=== PATIENT | male | born 1955 | race Two or more races ===

== ENCOUNTER 2018-02-17 13:16 | Outpatient (CLI) | payer OTHER | END 2018-02-17 23:59 | disposition home or self-care (01) | LOC: WOU 13:16 | PROVIDERS: ATTEND Podiatrist Foot & Ankle Surgery | DX: I70.262 Atherosclerosis of native arteries of extremities with gangrene, left leg (principal); L97.523 Non-pressure chronic ulcer of other part of left foot with necrosis of muscle; F17.200 Nicotine dependence, unspecified, uncomplicated; C34.11 Malignant neoplasm of upper lobe, right bronchus or lung; F10.21 Alcohol dependence, in remission; I10 Essential (primary) hypertension; Z82.3 Family history of stroke | CPT/HCPCS: A6402; G0463; Z7610 ==

== ENCOUNTER 2018-03-29 20:22 | Inpatient (IN) | payer OTHER ==
[~2018-03-29] VITALS: Ht 182.9 cm; Wt 65.8 kg
--- NOTE | 2018-03-30 03:05 | NUR ---
RECEIVED PATIENT DIRECT ADMIT FROM [facility] FOR DX TOE NECROSIS. AO X 3, ABLE TO MAKE NEEDS KNOWN. NO ACUTE DISTRESS NOTED. DENIES ANY PAIN AT THIS TIME. IV SITE PATENT, INTACT; FLUSHED. LEFT FOOT WOUND DRESSING INTACT; PHOTO TAKEN. SAFETY PRECAUTIONS AND COMFORT MEASURES IN PLACE. ORIENTATION TO ROOM AND UNIT GIVEN. WILL CONTINUE TO MONITOR.
[2018-03-30 03:10] VITALS: BP 122/77
[2018-03-30] MEDS ORDERED: MAGNESIUM HYDROXIDE 30 ML UDC PO PRN (03:30)
[2018-03-30] MEDS ORDERED: VANCOMYCIN 1 GM in IV D5W 250 ML IV SCH ×2 (03:30→05:00)
[2018-03-30] MEDS ORDERED: ONDANSETRON HCL/PF 4 MG/2 ML VIAL IVP PRN (03:30)
[2018-03-30] MEDS ORDERED: Z GUARD REMEDY 2 OZ OINT TP PRN (03:30)
[2018-03-30] MEDS ORDERED: PIPERACILLIN /TAZOBACTAM 3.375 G VIAL IV ONE (05:04)
[2018-03-30] MEDS ORDERED: VANCOMYCIN 1 GM VIAL ONE (05:04)
[2018-03-30] MEDS: PIPERACILLIN /TAZOBACTAM 3.375 G in IV D5W 50 ML IV SCH ×4 (05:16→23:40)
--- NOTE | 2018-03-30 06:00 | NUR ---
PATIENT ASLEEP, EASILY AROUSABLE. RESPIRATIONS EVEN. NO SIGNS OF PAIN NOTED. DUE MEDS GIVEN WITH NO ASE NOTED. NEEDS ATTENDED. SAFETY PRECAUTIONS AND COMFORT MEASURES IN PLACE. WILL GIVE REPORT TO DAY SHIFT FOR CONTINUITY OF CARE.
[2018-03-30 06:40] LABS: BASOPHILS # (AUTO) 0.1 /CMM (0.0-0.2); BASOPHILS % (AUTO) 0.8 % (0.0-2.0); EOSINOPHILS % (AUTO) 4.1 % (0.0-6.0); HEMATOCRIT 33 % (39-51); HEMOGLOBIN 10.7 g/dL (13.5-17.5); LYMPHOCYTES # (AUTO) 1.2 /CMM (0.8-4.8); LYMPHOCYTES % (AUTO) 14.6 % (20.0-44.0); MEAN CORPUSCULAR HGB CONC 33 g/dl (31.0-36.0); MEAN CORPUSCULAR VOLUME 88 fL (80-96); MONOCYTES # (AUTO) 1.9 /CMM (0.1-1.30); MONOCYTES % (AUTO) 23.1 % (2.0-12.0); NEUTROPHILS # (AUTO) 4.8 /CMM (1.8-8.9); NEUTROPHILS % (AUTO) 57.4 % (43.0-81.0); PLATELET COUNT (AUTO) 304 /CMM (150-450); RED BLOOD CELL COUNT(AUTO) 3.71 MIL/uL (4.5-6.0); WHITE BLOOD COUNT (AUTO) 8.4 K/uL (4.3-11.0)
[2018-03-30 06:43] LABS: CALCIUM, SERUM 8.8 mg/dL (8.5-10.1); CREATININE 0.8 mg/dL (0.6-1.3); MAGNESIUM 1.7 mg/dL (1.8-2.4); PHOSPHORUS 3.8 mg/dL (2.5-4.9); POTASSIUM 4.5 mmol/L (3.5-5.1)
--- NOTE | 2018-03-30 07:42 | NUR ---
MS RN OPENING NOTES RECEIVED PT LAYING IN BED, AWAKE AND ALERT. PT IS A/O X3, AFEBRILE. RESPIRATIONS ARE EVEN AND UNLABORED, NOT IN ANY ACUTE DISTRESS NOTED. PT DENIES ANY PAIN TO LEFT FOOT AT THIS TIME, NO C/O SOB, N/V. IV SITE TO R WRIST INTACT, NO INFILTRATION NOTED. DRESSING KEPT CLEAN AND DRY. SAFETY MEASURES ARE IN PLACE. INSTRUCTED PT TO USE CALL LIGHT WHEN ASSISTANCE IS NEEDED, CALL LIGHT IS LEFT WITHIN REACH. WILL CONTINUE TO MONITOR FOR CONTINUITY OF CARE.
[2018-03-30 07:44] LABS: BAND % (MANUAL) 1 % (0.0-5.0); EOSINOPHILS % (MANUAL) 3 % (0-4); LYMPHOCYTES % (MANUAL) 20 % (16-48); MONOCYTES % (MANUAL) 16 % (0-11.0); NEUTROPHILS % (MANUAL) 60 (42-76)
[2018-03-30 08:00] VITALS: BP 100/72
[2018-03-30] MEDS ORDERED: FEE PK DOSING 1 MIN EA MC ONE (08:31)
[2018-03-30] MEDS: Magnesium 1GM/D5W 100ML PREMIX 100 ML IV SCH ×2 (09:38→10:47)
[2018-03-30] MEDS ORDERED: MIRT15TA7 PO (10:12)
[2018-03-30] MEDS ORDERED: QUET50TA PO (10:12)
[2018-03-30] MEDS ORDERED: ATOR20TA PO (10:12)
--- NOTE | 2018-03-30 12:01 | NUR ---
MS RN NOTES-- PT SEEN BY DR. SEPULVEDA AND DRESSING CHANGE WAS DONE TO LEFT FOOD.
[2018-03-30] MEDS: HYDROCODONE/APAP 5/325MG 1 EACH TABLET PO PRN ×2 (14:24→18:07)
[2018-03-30 16:00] VITALS: BP 100/52
[2018-03-30] MEDS: VANCOMYCIN 1 GM in IV D5W 250 ML IV SCH (17:39)
--- NOTE | 2018-03-30 18:44 | NUR ---
MS GARCIA NOTES-- PT SIGNED CONSENTS FOR TOMORROW'S PROCEDURE FOR WOUND DEBRIDEMENT LEFT FOOD AND PARTIAL AMPUTATION 3-4 LEFT TOES.
--- NOTE | 2018-03-30 18:45 | NUR ---
MS RN CLOSING NOTES ALL DUE MEDS GIVEN, NEEDS MET AND ANTICIPATED. PT IS A/O X3, AFEBRILE. RESPIRATIONS ARE EVEN AND UNLABORED, NOT IN ANY ACUTE DISTRESS NOTED. PT DENIES ANY PAIN AT THIS TIME, NO C/O SOB, N/V NOTED. IV SITE TO LAC INTACT, NO INFILTRATION NOTED. DRESSING KEPT CLEAN AND DRY. SAFETY MEASURES ARE IN PLACE. WILL ENDORSE TO NEXT SHIFT FOR CONTINUITY OF CARE.
--- NOTE | 2018-03-30 19:30 | NUR ---
MS/RN OPENING NOTES PT AWAKE, RESTING COMFORTABLY IN BED. A/OX3. ON ROOM AIR, BREATHING EVEN AND UNLABORED. IN NO ACUTE DISTRESS AT THIS TIME. NO C/O OF PAIN AT THIS TIME, DENIES SOB. IV TO LAC PATENT AND INTACT. PT FOR SURGERY IN AM, CONSENTS SIGNED. NPO POST MIDNIGHT, PT AWARE. DRESSING TO LLE C/D/I, CHANGED BY DR. HIGGINS TODAY. NWB TO LLE. BED IN LOW/LOCKED POSITION WITH CALL LIGHT IN REACH. SIDE RAILS UPX2. WILL CONTINUE TO MONITOR
[2018-03-30 20:00] VITALS: BP 95/61
[2018-03-30] MEDS: QUETIAPINE FUMARATE 25 MG TABLET PO SCH (22:51)
[2018-03-30] MEDS: ATORVASTATIN 10 MG TABLET PO SCH (22:51)
[2018-03-30] MEDS: MIRTAZAPINE 15 MG TABLET PO SCH (22:52)
[2018-03-31] VITALS (8 sets, daily range): BP systolic 91–116; BP diastolic 54–74
[2018-03-31] MEDS: HYDROCODONE/APAP 5/325MG 1 EACH TABLET PO PRN ×4 (00:07→21:10)
[2018-03-31] MEDS: PIPERACILLIN /TAZOBACTAM 3.375 G in IV D5W 50 ML IV SCH ×3 (06:02→17:05)
[2018-03-31 06:30] LABS: BASOPHILS # (AUTO) 0.1 /CMM (0.0-0.2); BASOPHILS % (AUTO) 0.7 % (0.0-2.0); EOSINOPHILS % (AUTO) 5.4 % (0.0-6.0); HEMATOCRIT 32 % (39-51); HEMOGLOBIN 10.5 g/dL (13.5-17.5); LYMPHOCYTES # (AUTO) 1.1 /CMM (0.8-4.8); LYMPHOCYTES % (AUTO) 14.1 % (20.0-44.0); MEAN CORPUSCULAR HGB CONC 33 g/dl (31.0-36.0); MEAN CORPUSCULAR VOLUME 87 fL (80-96); MONOCYTES # (AUTO) 1.7 /CMM (0.1-1.30); MONOCYTES % (AUTO) 22.4 % (2.0-12.0); NEUTROPHILS # (AUTO) 4.4 /CMM (1.8-8.9); NEUTROPHILS % (AUTO) 57.4 % (43.0-81.0); PLATELET COUNT (AUTO) 287 /CMM (150-450); RED BLOOD CELL COUNT(AUTO) 3.64 MIL/uL (4.5-6.0); WHITE BLOOD COUNT (AUTO) 7.7 K/uL (4.3-11.0)
[2018-03-31 06:38] LABS: CALCIUM, SERUM 8.7 mg/dL (8.5-10.1); CREATININE 0.7 mg/dL (0.6-1.3); MAGNESIUM 1.9 mg/dL (1.8-2.4); PHOSPHORUS 4.1 mg/dL (2.5-4.9); POTASSIUM 4.1 mmol/L (3.5-5.1)
[2018-03-31] MEDS: VANCOMYCIN 1 GM in IV D5W 250 ML IV SCH ×2 (07:08→18:06)
--- NOTE | 2018-03-31 07:44 | NUR ---
WOUND CARE CONSULT WOUND CARE RECEIVED CONSULT FOR TOE WOUND. WOUND CARE WILL DEFER CONSULT AND TREATMENT PLANS TO DPM DR HAGEN HE IS CURRENTLY FOLLOWING THIS PATIENT. PATIENT WITH CHRIS AT 19. WILL SEE PRN.
--- NOTE | 2018-03-31 07:47 | NUR ---
MS/RN CLOSING NOTES PT AWAKE, RESTING COMFORTABLY IN BED. A/OX3. ANXIOUS AT TIMES. ON ROOM AIR, BREATHING EVEN AND UNLABORED. IN NO ACUTE DISTRESS. DENIES SOB. IV TO LAC PATENT AND INTACT. KEPT COMFORTABLE DURING SHIFT. NPO POST MIDNIGHT FOR SURGERY. CONSENTS SIGNED, PT AWARE. DRESSING TO LLE SOILED AT THIS TIME. NWB. USING URINAL. EMOTIONAL SUPPORT PROVIDED. NO SIGNIFICANT CHANGES OVERNIGHT. ALL NEEDS MET. KEPT COMFORTABLE DURING SHIFT. BED IN LOW/LOCKED POSITION WITH CALL LIGHT IN REACH. SIDE RAILS UPX2. ENDORSED TO DAY SHIFT RN RAUL.
[2018-03-31] MEDS ORDERED: IV NS 0.9% 1,000 ML IV STA (08:00)
--- NOTE | 2018-03-31 08:00 | NUR ---
RN NOTES PATIENT A/OX3, NO CHANGE IN LOC, NAD, BP LOW, CALLED ALE BLISS WITH NEW ORDER OF IVF 1L NS BOLUS X1. ORDER NOTED AND CARRIED OUT. PATIENT NPO DUE TO A PROCEDURE, CHECKLIST COMPLETE. WILL CONT. TO MONITOR.
[2018-03-31] MEDS ORDERED: BACITRACIN 50000 UNITS/VIAL ONE (08:52)
[2018-03-31] MEDS ORDERED: BUPIVACAINE 0.5 % PF 150 MG/30 ML VIAL ONE (08:52)
[2018-03-31] MEDS ORDERED: LIDOCAINE HCL/PF 1% 30 ML SDV ONE (08:52)
--- NOTE | 2018-03-31 09:06 | NUR ---
RN NOTES PATIENT TAKEN TO OR FOR PROCEDURE, PATIENT IN STABLE CONDITION.
[2018-03-31 09:15] LABS: BAND % (MANUAL) 1 % (0.0-5.0); EOSINOPHILS % (MANUAL) 7 % (0-4); LYMPHOCYTES % (MANUAL) 18 % (16-48); MONOCYTES % (MANUAL) 15 % (0-11.0); NEUTROPHILS % (MANUAL) 59 (42-76)
[2018-03-31] MEDS ORDERED: MIDAZOLAM HCL 2 MG/2ML VIAL ONE ×2 (09:17→11:26)
[2018-03-31] MEDS ORDERED: FENTANYL PF 100MCG/2ML AMPUL ONE ×2 (09:18→11:25)
--- NOTE | 2018-03-31 12:15 | NUR ---
RN NOTES PATIENT A/OX3, APPEARS TO BE DISORIENTED, RE-ORIENTED TO ROOM AND SITUATION, BREATHING EVEN AND UNLABORED, VS STABLE, KEPT COMFORTABLE, NEEDS ATTENDED, CALL LIGHT WITHIN REACH. WILL CONTINUE TO MONITOR. ALE BLISS PRESENT AND MADE AWARE.
[2018-03-31] MEDS: LACTOBACILLUS RHAMNOSUS GG 1 EACH CAP.SPRINK PO SCH (16:35)
--- NOTE | 2018-03-31 18:39 | NUR ---
RN NOTES PATIENT A/OX3, BREATHING EVEN AND UNLABORED, NO SOB NOTED, PIV ON RAC G20 PATENT AND FLUSHES WELL, LEFT FOOT COVERED WITH DRESSING AND ATTACHED TO A WOUNDVAC, WITH CURRENT OUTPUT OF 25ML. CT CHEST STILL PENDING, CONSENTS SIGNED, NEEDS ATTENDED AND MET, CALL LIGHT WITHIN REACH, WILL ENDORSE TO SLITTER HELPER FOR RAUL.
[2018-03-31] MEDS ORDERED: IOHEXOL-300 100 ML VIAL IV ONE (19:01)
[2018-03-31] MEDS ORDERED: CT SWABBABLE VALVE TRANS SET 1 EA INFUS.SET MC ONE (19:01)
[2018-03-31] MEDS: MIRTAZAPINE 15 MG TABLET PO SCH (21:09)
[2018-03-31] MEDS: ATORVASTATIN 10 MG TABLET PO SCH (21:09)
[2018-03-31] MEDS: QUETIAPINE FUMARATE 25 MG TABLET PO SCH (21:09)
[2018-03-31] MEDS: ZOLPIDEM TARTRATE 5 MG TABLET PO PRN (21:10)
[2018-03-31] MEDS: MUPIROCIN OINT 2% 22 GM TUBE SCH (21:11)
[2018-04-01] MEDS: PIPERACILLIN /TAZOBACTAM 3.375 G in IV D5W 50 ML IV SCH ×5 (00:19→23:57)
[2018-04-01] MEDS: HYDROCODONE/APAP 5/325MG 1 EACH TABLET PO PRN ×3 (02:02→11:21)
[2018-04-01] MEDS: VANCOMYCIN 1 GM in IV D5W 250 ML IV SCH ×2 (04:59→17:10)
--- NOTE | 2018-04-01 06:53 | NUR ---
MS RN NOTES AWAKE & RESPONSIVE. NOT IN ANY DISTRESS. NO SOB NOTED. DENIES ANY PAIN OR DISCOMFORT AT THIS TIME. WITH IV-HL PATENT & INTACT. MONITORED ACCORDINGLY. CALL LIGHT WITHIN REACH. BED IN LOWEST POSITION. SR UP X 2 FOR SAFETY. WILL ENDORSE TO NEXT SHIFT.
[2018-04-01 07:05] LABS: BASOPHILS # (AUTO) 0.1 /CMM (0.0-0.2); BASOPHILS % (AUTO) 0.7 % (0.0-2.0); EOSINOPHILS % (AUTO) 4.2 % (0.0-6.0); HEMATOCRIT 29 % (39-51); HEMOGLOBIN 9.7 g/dL (13.5-17.5); LYMPHOCYTES # (AUTO) 1.4 /CMM (0.8-4.8); LYMPHOCYTES % (AUTO) 15.6 % (20.0-44.0); MEAN CORPUSCULAR HGB CONC 33 g/dl (31.0-36.0); MEAN CORPUSCULAR VOLUME 88 fL (80-96); MONOCYTES # (AUTO) 1.9 /CMM (0.1-1.30); MONOCYTES % (AUTO) 21.4 % (2.0-12.0); NEUTROPHILS # (AUTO) 5.1 /CMM (1.8-8.9); NEUTROPHILS % (AUTO) 58.1 % (43.0-81.0); PLATELET COUNT (AUTO) 283 /CMM (150-450); RED BLOOD CELL COUNT(AUTO) 3.33 MIL/uL (4.5-6.0); WHITE BLOOD COUNT (AUTO) 8.8 K/uL (4.3-11.0)
[2018-04-01 07:13] LABS: CALCIUM, SERUM 8.5 mg/dL (8.5-10.1); CREATININE 0.7 mg/dL (0.6-1.3); MAGNESIUM 1.9 mg/dL (1.8-2.4); PHOSPHORUS 3.4 mg/dL (2.5-4.9)
--- NOTE | 2018-04-01 07:35 | NUR ---
MS RN OPENING NOTES RECEIVED PT LAYING IN BED, AWAKE AND ALERT. PT IS A/O X3, AFEBRILE. RESPIRATIONS ARE EVEN AND UNLABORED, NOT IN ANY ACUTE DISTRESS NOTED. PT DENIES ANY PAIN TO LEFT FOOT AT THIS TIME, NO C/O SOB, N/V. NO IV SITE NOTED. WILL INSERT NEW PERIPHERAL IV. WOUND VAC TO LEFT FOOT, DRAINING SEROSANGUINEOUS FLUID 150 CC NOTED. SAFETY MEASURES ARE IN PLACE. INSTRUCTED PT TO USE CALL LIGHT WHEN ASSISTANCE IS NEEDED, CALL LIGHT IS LEFT WITHIN REACH. WILL CONTINUE TO MONITOR FOR CONTINUITY OF CARE.
[2018-04-01 08:00] VITALS: BP 82/65
[2018-04-01] MEDS: LACTOBACILLUS RHAMNOSUS GG 1 EACH CAP.SPRINK PO SCH ×2 (08:31→17:10)
[2018-04-01] MEDS: MUPIROCIN OINT 2% 22 GM TUBE SCH ×2 (08:32→21:27)
[2018-04-01] MEDS: ACETAMINOPHEN 325 MG TABLET PO PRN (08:36)
[2018-04-01 09:04] LABS: EOSINOPHILS % (MANUAL) 5 % (0-4); LYMPHOCYTES % (MANUAL) 20 % (16-48); MONOCYTES % (MANUAL) 11 % (0-11.0); NEUTROPHILS % (MANUAL) 64 (42-76)
[2018-04-01] MEDS ORDERED: IV NS 0.9% 1,000 ML IV STA (12:18)
--- NOTE | 2018-04-01 13:07 | NUR ---
MS RN NOTES-- RECEIVED ORDERS PER ALE TO CHANGE CARDIAC DIET TO REGULAR DIET.
--- NOTE | 2018-04-01 13:44 | NUR ---
MS RN NOTES-- PT SIGNED CONSENT FORMS. CLARIFIED CONSENT WITH DR. BALBUENA AND AGREED.
[2018-04-01] MEDS ORDERED: CT SWABBABLE VALVE TRANS SET 1 EA INFUS.SET MC ONE (16:13)
[2018-04-01] MEDS ORDERED: IOHEXOL-300 100 ML VIAL IV ONE (16:13)
[2018-04-01] MEDS ORDERED: IV NS 0.9% 250 ML IV ONE (16:14)
--- NOTE | 2018-04-01 16:37 | NUR ---
MS RN NOTES-- PT WENT DOWN TO CT AND IV BECAME INFILTRATED. TRIED TO INSERT PERIPHERAL IV AND PT STRONGLY REFUSED. EXPLAINED TO THE PT THE IMPORTANCE OF A NEW IV FOR CT WITH CONTRAST AND ABX. PT STILL NTOED WITH REFUSAL. ALE ENCINAS MADE AWARE W/ ORDERS FOR MIDLINE INSERTION. NOTIFIED RUI, CHEMICAL PREPARER.
--- NOTE | 2018-04-01 16:50 | NUR ---
MS RN NOTES-- PT CAME BACK FROM CT. PER MANAGER [employer], IV WAS WORKING AND WAS ABLE TO DO CT WITH CONTRAST. INFORMED PT RE: MIDLINE INSERTION TO PREVENT MULTIPLE IV ATTEMPTS AND AGREED.
--- NOTE | 2018-04-01 17:26 | NUR ---
MS RN NOTES-- MIDLINE INSERTION DONE BY HUMPHREY WITH 18G TO DAVIN. PT TOLERATED WELL.
--- NOTE | 2018-04-01 18:15 | NUR ---
MS RN CLOSING NOTES ALL DUE MEDS GIVEN, NEEDS MET AND ANTICIPATED. PT IS A/O X3, AFEBRILE. RESPIRATIONS ARE EVEN AND UNLABORED, NOT IN ANY ACUTE DISTRESS NOTED. PT ABLE TO MAKE NEEDS KNOWN. DENIES ANY PAIN AT THIS TIME, NO C/O SOB, N/V. IMIDLINE TO DAVIN INTACT, NO INFILTRATION NOTED. DRESSING KEPT CLEAN AND DRY. SAFETY MEASURES ARE IN PLACE. BED IS IN ITS LOWEST AND LOCKED POSITION. REMINDED PT TO USE CALL LIGHT WHEN ASSISTANCE IS NEEDED, CALL LIGHT IS LEFT WITHIN REACH. WILL ENDORSE TO NEXT SHIFT FOR CONTINUITY OF CARE.
[2018-04-01] MEDS: HYDROCODONE/APAP 10/325MG 1 EA TABLET PO PRN (19:55)
[2018-04-01 20:00] VITALS: BP 127/77
[2018-04-01] MEDS: MIRTAZAPINE 15 MG TABLET PO SCH (21:27)
[2018-04-01] MEDS: QUETIAPINE FUMARATE 25 MG TABLET PO SCH (21:27)
[2018-04-01] MEDS: ATORVASTATIN 10 MG TABLET PO SCH (21:27)
[2018-04-01] MEDS: ACETYLCYSTEINE 10% 3,000 MG/30 ML VIAL PO SCH (21:32)
[2018-04-01] MEDS: ZOLPIDEM TARTRATE 5 MG TABLET PO PRN (21:39)
[2018-04-02] MEDS: VANCOMYCIN 1 GM in IV D5W 250 ML IV SCH ×2 (04:59→17:56)
[2018-04-02] MEDS: HYDROCODONE/APAP 10/325MG 1 EA TABLET PO PRN ×3 (05:00→21:27)
[2018-04-02] MEDS: PIPERACILLIN /TAZOBACTAM 3.375 G in IV D5W 50 ML IV SCH ×4 (06:01→23:44)
--- NOTE | 2018-04-02 07:39 | NUR ---
MS/RN OPENING NOTE PATIENT IN BED IN STABLE CONDITION. A/O X 3. NO SIGNS OF ACUTE DISTRESS. NO COMPLAIN OF PAIN OR DISCOMFORT. NPO STATUS SECONDARY TO PATIENT SCHEDULE FOR US GUIDED BIOPSY FOR LUNG MASS. ALL NEEDS ATTENDED TO. CALL LIGHT WITHIN REACH. WILL CONTINUE TO MONITOR TO ENSURE SAFETY.
[2018-04-02 07:41] LABS: BASOPHILS # (AUTO) 0.1 /CMM (0.0-0.2); EOSINOPHILS % (AUTO) 5.7 % (0.0-6.0); HEMATOCRIT 29 % (39-51); HEMOGLOBIN 9.6 g/dL (13.5-17.5); LYMPHOCYTES # (AUTO) 1.3 /CMM (0.8-4.8); LYMPHOCYTES % (AUTO) 15.1 % (20.0-44.0); MEAN CORPUSCULAR HGB CONC 33 g/dl (31.0-36.0); MEAN CORPUSCULAR VOLUME 87 fL (80-96); MONOCYTES # (AUTO) 1.7 /CMM (0.1-1.30); MONOCYTES % (AUTO) 19.1 % (2.0-12.0); NEUTROPHILS # (AUTO) 5.1 /CMM (1.8-8.9); NEUTROPHILS % (AUTO) 59.1 % (43.0-81.0); PLATELET COUNT (AUTO) 281 /CMM (150-450); RED BLOOD CELL COUNT(AUTO) 3.33 MIL/uL (4.5-6.0); WHITE BLOOD COUNT (AUTO) 8.7 K/uL (4.3-11.0)
[2018-04-02 07:52] LABS: CALCIUM, SERUM 8.4 mg/dL (8.5-10.1); CREATININE 0.8 mg/dL (0.6-1.3); MAGNESIUM 1.7 mg/dL (1.8-2.4)
[2018-04-02 08:00] VITALS: BP 103/60
[2018-04-02 08:01] LABS: THYROID STIMULATING HORMONE 1.863 uIU/mL (0.358-3.74)
[2018-04-02] MEDS: LACTOBACILLUS RHAMNOSUS GG 1 EACH CAP.SPRINK PO SCH ×2 (08:17→16:54)
[2018-04-02] MEDS: ACETYLCYSTEINE 10% 3,000 MG/30 ML VIAL PO SCH ×2 (08:17→16:54)
[2018-04-02 09:00] LABS: EOSINOPHILS % (MANUAL) 4 % (0-4); LYMPHOCYTES % (MANUAL) 6 % (16-48); MONOCYTES % (MANUAL) 15 % (0-11.0); NEUTROPHILS % (MANUAL) 75 (42-76)
[2018-04-02] MEDS: MUPIROCIN OINT 2% 22 GM TUBE SCH ×2 (09:02→21:32)
--- NOTE | 2018-04-02 09:04 | NUR ---
WOUND CARE CONSULT: WOUND VAC DRESSING CHANGED ON LEFT FOOT SURGICAL SITE. SKIN PREP AND VAC DRAPE APPLIED TO PERIWOUND AREA, SMALL PIECE OF XEROFORM PLACED ON LEFT GREAT TOE NAIL AVULSION SITE. GRANUFOAM USED FOR WOUND (3 PIECES) AND VAC SETTING 125mmHg CONTINUOUS. CANISTER CHANGED WITH 300 cc DARK RED DRAINAGE, NO ODOR. PT TOLERATED WELL. WILL SEE PRN. Addendum: 04/02/18 at 0906 by NAKIA SLATER WNDNU Amended: Links added.
[2018-04-02] MEDS: HYDROCODONE/APAP 5/325MG 1 EACH TABLET PO PRN (09:37)
[2018-04-02] MEDS ORDERED: FENTANYL PF 250MCG/5ML AMPUL IV ONE (10:00)
[2018-04-02] MEDS ORDERED: NALOXONE PREFILLED SYRINGE 2 MG/2 ML SYRINGE IV ONE (10:00)
[2018-04-02] MEDS ORDERED: MIDAZOLAM HCL 5MG/ML VIAL 25 MG/5 ML VIAL IV ONE (10:00)
[2018-04-02] MEDS ORDERED: LIDOCAINE 1% INJ 50 ML MDV IJ ONE (10:02)
--- NOTE | 2018-04-02 12:02 | NUR ---
MS/RN NARCAN NON ADMINISTER IN OR, OR NURSE WILL RETURN TO PHARMACY
--- NOTE | 2018-04-02 12:05 | NUR ---
MS/RN RETURN FROM OR. A/O X 4. NO SIGNS OF ACUTE DISTRESS. NO COMPLAIN OF PAIN OR DISCOMFORT. S/P RUL BIOPSY SITE NOTED WITH DRESSING. ALL NEEDS ATTENDED TO. CALL LIGHT WITHIN REACH. WILL CONTINUE TO MONITOR TO ENSURE SAFETY.
[2018-04-02] MEDS: Magnesium 1GM/D5W 100ML PREMIX 100 ML IV SCH ×2 (12:57→13:59)
[2018-04-02 16:00] VITALS: BP 122/70
--- NOTE | 2018-04-02 18:18 | NUR ---
MS/RN REQUEST FOR RECORDS PER DR BALBUENA REQUEST, REQUESTED FOR LUNG BIOPSY RESULT VIA FAX FROM [employer] AT . CALLED [employer] [facility] [employer] PH # AND LEFT MESSAGE. ALSO SPOKE WITH SISTER RESPONSIBLE CONSTITUTION PARTY FOR PATIENT AND REQUESTED IF ITS OKAY WITH HER TO GET RECORDS FROM [employer] PER SISTER NAKIA SHE WILL TRY TO GET THEM TOMORROW.
--- NOTE | 2018-04-02 18:23 | NUR ---
MS/RN CLOSING NOTE PATIENT IN BED IN STABLE CONDITION. A/O X 3. NO SIGNS OF ACUTE DISTRESS. NO COMPLAIN OF PAIN OR DISCOMFORT. ALL NEEDS ATTENDED TO. CALL LIGHT WITHIN REACH. WILL CONTINUE TO MONITOR TO ENSURE SAFETY.
--- NOTE | 2018-04-02 19:30 | NUR ---
MS/RN RECEIVE PATIENT AWAKE, ALERT, ORIENTED, COMFORTABLE, NO C/O PAIN, NO DISTRESS NOTED, WOUND VAC IN PLACE, WILL MONITOR.
[2018-04-02 20:00] VITALS: BP 114/78
[2018-04-02] MEDS: ATORVASTATIN 10 MG TABLET PO SCH (21:26)
[2018-04-02] MEDS: MIRTAZAPINE 15 MG TABLET PO SCH (21:27)
[2018-04-02] MEDS: QUETIAPINE FUMARATE 25 MG TABLET PO SCH (21:27)
[2018-04-03] MEDS: ZOLPIDEM TARTRATE 5 MG TABLET PO PRN ×2 (00:01→23:08)
--- NOTE | 2018-04-03 02:39 | NUR ---
MS/RN PATIENT IS SLEEPING, AROUSABLE, APPEAR COMFORTABLE, NO DISTRESS NOTED, CALL LIGHT IN REACH. WILL CONTINUE TO MONITOR.
[2018-04-03] MEDS: PIPERACILLIN /TAZOBACTAM 3.375 G in IV D5W 50 ML IV SCH ×3 (05:46→17:01)
[2018-04-03 06:00] LABS: BASOPHILS # (AUTO) 0.1 /CMM (0.0-0.2); BASOPHILS % (AUTO) 0.7 % (0.0-2.0); EOSINOPHILS % (AUTO) 6.2 % (0.0-6.0); HEMATOCRIT 32 % (39-51); HEMOGLOBIN 10.4 g/dL (13.5-17.5); LYMPHOCYTES # (AUTO) 1.3 /CMM (0.8-4.8); LYMPHOCYTES % (AUTO) 15.6 % (20.0-44.0); MEAN CORPUSCULAR HGB CONC 32 g/dl (31.0-36.0); MEAN CORPUSCULAR VOLUME 88 fL (80-96); MONOCYTES # (AUTO) 1.9 /CMM (0.1-1.30); MONOCYTES % (AUTO) 22.5 % (2.0-12.0); NEUTROPHILS # (AUTO) 4.7 /CMM (1.8-8.9); PLATELET COUNT (AUTO) 296 /CMM (150-450); RED BLOOD CELL COUNT(AUTO) 3.67 MIL/uL (4.5-6.0); WHITE BLOOD COUNT (AUTO) 8.5 K/uL (4.3-11.0)
[2018-04-03 06:12] LABS: CALCIUM, SERUM 8.8 mg/dL (8.5-10.1); CREATININE 0.9 mg/dL (0.6-1.3); PHOSPHORUS 3.3 mg/dL (2.5-4.9)
[2018-04-03] MEDS: VANCOMYCIN 1 GM in IV D5W 250 ML IV SCH ×2 (06:45→18:01)
[2018-04-03 06:50] LABS: OCCULT BLOOD STOOL NEGATIVE (NEGATIVE)
--- NOTE | 2018-04-03 06:52 | NUR ---
MS/RN PATIENT IS SLEEPING AT THIS TIME, AROUSABLE, APPEAR COMFORTABLE, NO SIGNS OF DISTRESS NOTED, CALL LIGHT IN REACH. ALL NEEDS ATTENDED AT THIS TIME, WILL CONTINUE TO MONITOR.
[2018-04-03] MEDS: HYDROCODONE/APAP 10/325MG 1 EA TABLET PO PRN ×2 (07:02→16:46)
--- NOTE | 2018-04-03 07:31 | NUR ---
MS/RN OPENING NOTE PATIENT IN BED IN STABLE CONDITION. A/O X 3 WITH EPISODES OF FORGETFULNESS. NO SIGNS OF ACUTE DISTRESS. NO COMPLAIN OF PAIN OR DISCOMFORT. ON CONTACT ISOLATION FOR MRSA NARES. TOLERATING WELL. ALL NEEDS ATTENDED TO. CALL LIGHT WITHIN REACH. WILL CONTINUE TO MONITOR TO ENSURE SAFETY.
[2018-04-03 08:00] VITALS: BP 124/62
[2018-04-03] MEDS: LACTOBACILLUS RHAMNOSUS GG 1 EACH CAP.SPRINK PO SCH ×2 (08:21→16:08)
[2018-04-03] MEDS: CYANOCOBALAMIN 500 MCG TABLET PO SCH (08:21)
[2018-04-03] MEDS: MUPIROCIN OINT 2% 22 GM TUBE SCH ×2 (08:22→21:41)
[2018-04-03 10:49] LABS: BAND % (MANUAL) 2 % (0.0-5.0); EOSINOPHILS % (MANUAL) 10 % (0-4); LYMPHOCYTES % (MANUAL) 13 % (16-48); MONOCYTES % (MANUAL) 19 % (0-11.0); NEUTROPHILS % (MANUAL) 56 (42-76)
[2018-04-03] MEDS: HYDROCODONE/APAP 5/325MG 1 EACH TABLET PO PRN (11:37)
[2018-04-03] MEDS: SOD FERRIC GLUC 125 MG in IV NS 0.9% 100 ML IV SCH (13:47)
[2018-04-03 16:00] VITALS: BP 137/68
--- NOTE | 2018-04-03 16:55 | NUR ---
MS/RN SPOKE WITH ALE ENCINAS AND RELAYED PATIENT'S HEAD C.T. RESULTS WITH NO NEW ORDERS AT THIS TIME.
--- NOTE | 2018-04-03 18:32 | NUR ---
MS/RN CLOSING NOTE PATIENT IN BED IN STABLE CONDITION. A/O X 3 WITH EPISODES OF FORGETFULNESS. NO SIGNS OF ACUTE DISTRESS. NO COMPLAIN OF PAIN OR DISCOMFORT. ON CONTACT ISOLATION FOR MRSA NARES. ALL NEEDS ATTENDED TO. CALL LIGHT WITHIN REACH. WILL ENDORSE TO NEXT SHIFT FOR CONTINUITY OF CARE.
--- NOTE | 2018-04-03 19:35 | NUR ---
MS/RN RECEIVE PATIENT AWAKE, ALERT, ORIENTED, COMFORTABLE, NO C/O PAIN, NO DISTRESS NOTED, CALL LIGHT IN REACH. WILL MONITOR.
[2018-04-03 20:00] VITALS: BP 128/65
[2018-04-03] MEDS: QUETIAPINE FUMARATE 25 MG TABLET PO SCH (21:39)
[2018-04-03] MEDS: MIRTAZAPINE 15 MG TABLET PO SCH (21:39)
[2018-04-03] MEDS: ATORVASTATIN 10 MG TABLET PO SCH (21:39)
[2018-04-04] MEDS: PIPERACILLIN /TAZOBACTAM 3.375 G in IV D5W 50 ML IV SCH ×5 (00:50→23:27)
[2018-04-04] MEDS: HYDROCODONE/APAP 10/325MG 1 EA TABLET PO PRN ×3 (02:46→21:30)
[2018-04-04] MEDS: VANCOMYCIN 1 GM in IV D5W 250 ML IV SCH ×2 (06:07→17:34)
--- NOTE | 2018-04-04 06:37 | NUR ---
MS/RN PATIENT IS AWAKE, COMFORTABLE, NO DISTRESS NOTED, ALL NEEDS ATTENDED AT THIS TIME. WILL CONTINUE TO MONITOR.
--- NOTE | 2018-04-04 07:15 | NUR ---
MSRN. PT RECEIVED A&0X3, TOLERATING ROOM AIR AND REPORTING MODERATE PAIN TO L FOOT. PT WITH DAVIN MIDLINE INTACT AND OPERATIONAL. PT WITH WOUND VAC INTACT AND OPERATIONAL MAINTAINING 125MMHG. PT BED IN LOWEST LOCKED POSITION WITH HANDRAILSX2, BELONGINGS AND CALL NARAYAN WITHIN REACH. PT WITH BSC AND REQUESTED TO CALL PRIOR TO TRANSFERRING. PT WITHOUT CONCERN OR COMPLAINT AT THIS TIME.
[2018-04-04 08:00] VITALS: BP 94/61
[2018-04-04] MEDS: CYANOCOBALAMIN 500 MCG TABLET PO SCH (08:16)
[2018-04-04] MEDS: LACTOBACILLUS RHAMNOSUS GG 1 EACH CAP.SPRINK PO SCH ×2 (08:16→17:34)
[2018-04-04] MEDS: MUPIROCIN OINT 2% 22 GM TUBE SCH ×2 (08:17→21:17)
[2018-04-04 11:26] LABS: BASOPHILS # (AUTO) 0.1 /CMM (0.0-0.2); BASOPHILS % (AUTO) 1.5 % (0.0-2.0); EOSINOPHILS % (AUTO) 5.9 % (0.0-6.0); HEMATOCRIT 32 % (39-51); HEMOGLOBIN 10.6 g/dL (13.5-17.5); LYMPHOCYTES # (AUTO) 1.1 /CMM (0.8-4.8); LYMPHOCYTES % (AUTO) 15.1 % (20.0-44.0); MEAN CORPUSCULAR HGB CONC 33 g/dl (31.0-36.0); MEAN CORPUSCULAR VOLUME 87 fL (80-96); MONOCYTES # (AUTO) 1.3 /CMM (0.1-1.30); MONOCYTES % (AUTO) 18.8 % (2.0-12.0); NEUTROPHILS # (AUTO) 4.2 /CMM (1.8-8.9); NEUTROPHILS % (AUTO) 58.7 % (43.0-81.0); PLATELET COUNT (AUTO) 305 /CMM (150-450); RED BLOOD CELL COUNT(AUTO) 3.69 MIL/uL (4.5-6.0); WHITE BLOOD COUNT (AUTO) 7.1 K/uL (4.3-11.0)
[2018-04-04 11:40] LABS: CALCIUM, SERUM 8.7 mg/dL (8.5-10.1); CREATININE 0.8 mg/dL (0.6-1.3); MAGNESIUM 1.7 mg/dL (1.8-2.4); PHOSPHORUS 4.7 mg/dL (2.5-4.9)
[2018-04-04] MEDS ORDERED: Magnesium 1GM/D5W 100ML PREMIX PIGGYBACK IV ONE (12:00)
[2018-04-04] MEDS ORDERED: Magnesium 1GM/D5W 100ML PREMIX 100 ML IV SCH (12:30)
[2018-04-04 13:20] LABS: EOSINOPHILS % (MANUAL) 7 % (0-4); LYMPHOCYTES % (MANUAL) 13 % (16-48); MONOCYTES % (MANUAL) 14 % (0-11.0); NEUTROPHILS % (MANUAL) 66 (42-76)
[2018-04-04] MEDS: SOD FERRIC GLUC 125 MG in IV NS 0.9% 100 ML IV SCH (14:01)
[2018-04-04] MEDS: ACETAMINOPHEN 325 MG TABLET PO PRN (15:45)
[2018-04-04 16:00] VITALS: BP 111/76
--- NOTE | 2018-04-04 18:05 | NUR ---
MSRN. PT REMAINS A&0X3, TOLERATING ROOM AIR. REMAINS WITH MODERATE PAIN TO L FOOT. PT WITH DAVIN MIDLINE INTACT AND OPERATIONAL. PT WITH WOUND VAC INTACT AND OPERATIONAL MAINTAINING 125MMHG. PT BED IN LOWEST LOCKED POSITION WITH HANDRAILSX2, BELONGINGS AND CALL NARAYAN WITHIN REACH. PT WITH BSC. ALL DAY NURSE DUTIES ATTENDED TO AND PT IS WITHOUT CONCERN OR COMPLAINT A THIS TIME. WILL ENDORSE TO NIGHT NURSE AT BEDSIDE FOR RAUL.
[2018-04-04 20:00] VITALS: BP 121/74
[2018-04-04] MEDS: ATORVASTATIN 10 MG TABLET PO SCH (21:17)
[2018-04-04] MEDS: QUETIAPINE FUMARATE 25 MG TABLET PO SCH (21:18)
[2018-04-04] MEDS: MIRTAZAPINE 15 MG TABLET PO SCH (21:18)
[2018-04-04] MEDS: ZOLPIDEM TARTRATE 5 MG TABLET PO PRN (21:27)
[2018-04-05] MEDS: HYDROCODONE/APAP 10/325MG 1 EA TABLET PO PRN ×3 (03:49→20:46)
[2018-04-05] MEDS: PIPERACILLIN /TAZOBACTAM 3.375 G in IV D5W 50 ML IV SCH ×3 (05:28→18:12)
[2018-04-05 06:35] LABS: BASOPHILS # (AUTO) 0.1 /CMM (0.0-0.2); BASOPHILS % (AUTO) 0.7 % (0.0-2.0); EOSINOPHILS % (AUTO) 6.9 % (0.0-6.0); HEMATOCRIT 32 % (39-51); HEMOGLOBIN 10.5 g/dL (13.5-17.5); LYMPHOCYTES # (AUTO) 1.3 /CMM (0.8-4.8); LYMPHOCYTES % (AUTO) 16.7 % (20.0-44.0); MEAN CORPUSCULAR HGB CONC 33 g/dl (31.0-36.0); MEAN CORPUSCULAR VOLUME 87 fL (80-96); MONOCYTES # (AUTO) 1.7 /CMM (0.1-1.30); MONOCYTES % (AUTO) 22.1 % (2.0-12.0); NEUTROPHILS # (AUTO) 4.1 /CMM (1.8-8.9); NEUTROPHILS % (AUTO) 53.6 % (43.0-81.0); PLATELET COUNT (AUTO) 329 /CMM (150-450); RED BLOOD CELL COUNT(AUTO) 3.68 MIL/uL (4.5-6.0); WHITE BLOOD COUNT (AUTO) 7.6 K/uL (4.3-11.0)
--- NOTE | 2018-04-05 06:46 | NUR ---
MS RN NOTES AWAKE & RESPONSIVE. NOT IN ANY DISTRESS. NO SOB NOTED. DENIES ANY PAIN OR DISCOMFORT AT THIS TIME. WITH MIDLINE PATENT & INTACT. DRESSING TO WOUND VAC C/D/I. MONITORED ACCORDINGLY. CALL LIGHT WITHIN REACH. BED IN LOWEST POSITION. SR UP X 2 FOR SAFETY. WILL ENDORSE TO NEXT SHIFT.
[2018-04-05 06:49] LABS: CREATININE 0.9 mg/dL (0.6-1.3); MAGNESIUM 1.8 mg/dL (1.8-2.4); PHOSPHORUS 3.6 mg/dL (2.5-4.9)
--- NOTE | 2018-04-05 07:27 | NUR ---
MSRN. PT RECEIVED A&0X3, TOLERATING ROOM AIR AND REPORTS ADEQUATE PAIN MANAGEMENT AT THIS TIME. PT WITH DAVIN MIDLINE INTACT AND OPERATIONAL. PT WITH WOUND VAC INTACT AND OPERATIONAL MAINTAINING 125MMHG. PT BED IN LOWEST LOCKED POSITION WITH HANDRAILSX2, BELONGINGS AND CALL NARAYAN WITHIN REACH. PT WITH BSC AND AGAIN REQUESTED TO CALL PRIOR TO TRANSFERRING. PT WITHOUT CONCERN OR COMPLAINT AT THIS TIME. WILL CONTINUE POC.
[2018-04-05 08:00] VITALS: BP 103/69
[2018-04-05] MEDS: LACTOBACILLUS RHAMNOSUS GG 1 EACH CAP.SPRINK PO SCH ×2 (08:31→17:37)
[2018-04-05] MEDS: ACETAMINOPHEN 325 MG TABLET PO PRN (08:31)
[2018-04-05] MEDS: CYANOCOBALAMIN 500 MCG TABLET PO SCH (08:31)
[2018-04-05] MEDS: MUPIROCIN OINT 2% 22 GM TUBE SCH ×2 (08:32→20:48)
[2018-04-05] MEDS: VANCOMYCIN 1 GM in IV D5W 250 ML IV SCH ×2 (08:32→18:56)
[2018-04-05 09:26] LABS: EOSINOPHILS % (MANUAL) 7 % (0-4); LYMPHOCYTES % (MANUAL) 14 % (16-48); MONOCYTES % (MANUAL) 14 % (0-11.0); NEUTROPHILS % (MANUAL) 65 (42-76)
--- NOTE | 2018-04-05 11:40 | NUR ---
WOUND CARE: RECEIVED ORDER TO DC WOUND VAC AND APPLY DRESSING. VAC DRESSING REMOVED. WOUND CLEANSED WITH NS, THEN XEROFORM DRESSING APPLIED TO OPEN AREAS, COVERED WITH 4X4 GAUZE PADS, GENTLY WRAPPED WITH KERLIX AND BURN NETTING. PT TOLERATED WELL. Addendum: 04/05/18 at 1142 by NAKIA SLATER WNDNU Amended: Links added.
[2018-04-05] MEDS ORDERED: ACET325T53 PO (12:13)
[2018-04-05] MEDS ORDERED: CYAN500T4 PO (12:13)
[2018-04-05] MEDS ORDERED: HYDR-3972 PO (12:13)
[2018-04-05] MEDS ORDERED: MAGN400O6 PO (12:13)
[2018-04-05] MEDS: HYDROCODONE/APAP 5/325MG 1 EACH TABLET PO PRN (15:24)
[2018-04-05 16:00] VITALS: BP 120/91
--- NOTE | 2018-04-05 16:00 | NUR ---
MSNR. CONTACT PHYSICAL EDUCATION AIDE LW TO INFORM HER PT NOT ACCEPTED FOR D/C AND REQUESTING POC FOR WOUND VAC. PHYSICAL EDUCATION AIDE TO FOLLOW UP WITH ORDERS OR PLAN.
[2018-04-05] MEDS: SOD FERRIC GLUC 125 MG in IV NS 0.9% 100 ML IV SCH (16:12)
--- NOTE | 2018-04-05 18:21 | NUR ---
MSRN. PT TOLERATING ROOM AIR AND REPORTS ADEQUATE PAIN MANAGEMENT DURING SHIFT. PT WITH DAVIN MIDLINE INTACT AND OPERATIONAL. PT WOUND CARE COMPLETED BY WOUND CARE NURSE AND DRESSING REMAINS CLEAN AND INTACT. PT BED IN LOWEST LOCKED POSITION WITH HANDRAILSX2, BELONGINGS AND CALL NARAYAN WITHIN REACH. ALL DAY NURSE DUTIES ATTENDED TO AND PT IS WITHOUT CONCERN OR COMPLAINT AT THIS TIME. WILL ENDORSE TO NIGHT NURSE AT BEDSIDE FOR RAUL.
--- NOTE | 2018-04-05 19:25 | NUR ---
MS RN NOTE: PATIENT RESTING IN BED, NO ACUTE DISTRESS NOTED. BREATHING EVEN AND UNLABORED, NO SOB NOTED. MIDLINE TO DVAIN IN PLACE. ISOLATION PRECAUTION OBSERVED. DRESSING TO LEFT FOOT IN PLACE, CLEAN AND DRY, NO BLOODING NOTED. BED LOCKED AND IN LOWEST POSITION, CALL LIGHT IN REACH. WILL CONTINUE TO MONITOR.
[2018-04-05 20:35] VITALS: BP 131/78
--- NOTE | 2018-04-05 21:00 | NUR ---
MS RN NOTE: PATIENT COMPLAINS OF PAIN TO LEFT FOOT 11/09, NORCO 10/325MG 1 TAB ORAL GIVEN PER MD ORDER. WILL CONTINUE TO MONITOR.
[2018-04-05] MEDS: ATORVASTATIN 10 MG TABLET PO SCH (22:04)
[2018-04-05] MEDS: MIRTAZAPINE 15 MG TABLET PO SCH (22:04)
[2018-04-05] MEDS: QUETIAPINE FUMARATE 25 MG TABLET PO SCH (22:04)
[2018-04-06] MEDS: PIPERACILLIN /TAZOBACTAM 3.375 G in IV D5W 50 ML IV SCH ×4 (00:20→18:22)
[2018-04-06] MEDS: HYDROCODONE/APAP 10/325MG 1 EA TABLET PO PRN ×4 (01:18→20:51)
--- NOTE | 2018-04-06 06:15 | NUR ---
MS RN NOTE: PATIENT RESTING IN BED, NO ACUTE DISTRESS NOTED. BREATHING EVEN AND UNLABORED, NO SOB NOTED. MIDLINE TO DAVIN IN PLACE. ISOLATION PRECAUTION OBSERVED. DRESSING TO LEFT FOOT IN PLACE, CLEAN AND DRY, NO BLOODING NOTED. BED LOCKED AND IN LOWEST POSITION, CALL LIGHT IN REACH. WILL ENDORSE TO DAY NURSE TO CONTINUE WITH PLAN OF CARE.
[2018-04-06] MEDS: VANCOMYCIN 1 GM in IV D5W 250 ML IV SCH ×2 (07:02→18:51)
--- NOTE | 2018-04-06 08:00 | NUR ---
MS RN NOTES PATIENT IN BED RESTING NO SOB OR ACUTE DISTRESS NOTED. PATIENT ALERT, ORIENTED X3. BED IN LOW LOCKED POSITION. MIDLING ON LEFT UPPER ARM INTACT PATENT. WILL CONTINUE TO MONITOR.
[2018-04-06] MEDS: CYANOCOBALAMIN 500 MCG TABLET PO SCH (08:37)
[2018-04-06] MEDS: LACTOBACILLUS RHAMNOSUS GG 1 EACH CAP.SPRINK PO SCH ×2 (08:37→16:49)
[2018-04-06 08:53] VITALS: BP 92/52
[2018-04-06] MEDS: MUPIROCIN OINT 2% 22 GM TUBE SCH ×2 (09:00→22:24)
[2018-04-06] MEDS: SOD FERRIC GLUC 125 MG in IV NS 0.9% 100 ML IV SCH (15:27)
[2018-04-06 16:29] VITALS: BP 115/74
[2018-04-06] MEDS: HYDROCODONE/APAP 5/325MG 1 EACH TABLET PO PRN (16:50)
--- NOTE | 2018-04-06 18:05 | NUR ---
MS RN NOTES PATIENT IN BED RESTING ALL DUE MEDICATIONS ADMINISTERED. ALL NEEDS MET. PATIENT AWAITING DISCHARGE WAITING FOR WOUND VAC AT SNF FACILITY. WILL ENDORSE CARE TO PM SHIFT.
--- NOTE | 2018-04-06 19:15 | NUR ---
MS/RN OPENING NOTES PT RECEIVED AWAKE, SITTING UP IN BED. A/OX3. ON ROOM AIR, BREATHING EVEN AND UNLABORED. DENIES SOB, PAIN NOTED AT A TOLERABLE LEVEL 5/10 AT THIS TIME. DAVIN MIDLINE PATENT AND INTACT. BED IN LOW/LOCKED POSITION WITH CALL LIGHT IN REACH. BILATERAL UPPER SIDE RAILS IN PLACE. DRESSING TO LEFT FOOT C/D/I. WILL CONTINUE TO MONITOR
[2018-04-06 20:00] VITALS: BP 128/78
[2018-04-06] MEDS ORDERED: LEVOFLOXACIN (500MG) 500 MG TABLET PO SCH (20:00)
[2018-04-06 20:58] VITALS: BP 128/78
[2018-04-06] MEDS: ATORVASTATIN 10 MG TABLET PO SCH (22:24)
[2018-04-06] MEDS: QUETIAPINE FUMARATE 25 MG TABLET PO SCH (22:24)
[2018-04-06] MEDS: MIRTAZAPINE 15 MG TABLET PO SCH (22:24)
[2018-04-07] MEDS: VANCOMYCIN 1 GM in IV D5W 250 ML IV SCH (06:26)
[2018-04-07] MEDS: HYDROCODONE/APAP 5/325MG 1 EACH TABLET PO PRN ×2 (06:34→11:17)
--- NOTE | 2018-04-07 07:03 | NUR ---
MS/RN CLOSING NOTES PT WITH EYES CLOSED. OPENS EYES SPONTANEOUSLY. ON ROOM AIR, BREATHING EVEN AND UNLABORED. DENIES SOB, PAIN MANAGED WITH PRN NORCO. DAVIN MIDLINE PATENT AND INTACT, CURRENTLY RUNNING VANCO. NO SIGNIFICANT CHANGES OVERNIGHT. KEPT COMFORTABLE DURING SHIFT. ALL NEEDS MET. DRESSING TO LEFT FOOT C/D/I. BED IN LOW/LOCKED POSITION WITH CALL LIGHT IN REACH. HOB ELEVATED AND BILATERAL UPPER SIDE RAILS IN PLACE. WILL ENDORSE TO DAY SHIFT RN RAUL.
--- NOTE | 2018-04-07 07:15 | NUR ---
RN NOTES PATIENT A/OX3, BREATHING EVEN AND UNLABORED, NO SOB NOTED, NAD, VSS, KEPT COMFORTABLE, NEEDS ATTENDED, CALL LIGHT WITHIN REACH, WILL CONTINUE TO MONITOR.
[2018-04-07 08:00] VITALS: BP 110/62
[2018-04-07] MEDS: CYANOCOBALAMIN 500 MCG TABLET PO SCH (08:19)
[2018-04-07] MEDS: LACTOBACILLUS RHAMNOSUS GG 1 EACH CAP.SPRINK PO SCH (08:19)
[2018-04-07] MEDS: MUPIROCIN OINT 2% 22 GM TUBE SCH (08:22)
[2018-04-07] MEDS: HYDROCODONE/APAP 10/325MG 1 EA TABLET PO PRN (14:06)
--- NOTE | 2018-04-07 14:10 | NUR ---
BRUSH MAKER MACHINE PATIENT A/OX2-3,NAD, SKIN ASSESSMENT COMPLETED, WOUND TREATMENT RENDERED, SEEN BY DR. HAGEN, PHOTOS TAKEN AND PLACED IN CHART, DRESSING CLEAN AND DRY, DISCHARGE INSTRUCTIONS PROVIDED, PAPERWORKS SIGNED, REPORT GIVEN TO [facility]. BELONGINGS RECONCILED AND COMPLETE. MIDLINE ON DAVIN REMOVED, APPLIED GAUZE AND TAPE, NEEDS ATTENDED. PATIENT GIVEN NORCO FOR PAIN PRIOR TO LEAVING. PATIENT LEFT WITH [address] [facility]BULANCE.
== END 2018-04-07 14:10 | DRG 792 ==
LOC: MEDSG2 03-30 02:53
PROVIDERS: ADMIT Registered Nurse; ATTEND Nurse Practitioner Acute Care
DX: L76.82 Other postprocedural complications of skin and subcutaneous tissue (principal); I96 Gangrene, not elsewhere classified; E27.8 Other specified disorders of adrenal gland; E44.1 Mild protein-calorie malnutrition; L97.529 Non-pressure chronic ulcer of other part of left foot with unspecified severity; C34.11 Malignant neoplasm of upper lobe, right bronchus or lung; D64.9 Anemia, unspecified; E53.8 Deficiency of other specified B group vitamins; E78.5 Hyperlipidemia, unspecified; F41.9 Anxiety disorder, unspecified; Z87.891 Personal history of nicotine dependence; Z22.322 Carrier or suspected carrier of Methicillin resistant Staphylococcus aureus; Z86.73 Personal history of transient ischemic attack (TIA), and cerebral infarction without residual deficits; Y83.9 Surgical procedure, unspecified as the cause of abnormal reaction of the patient, or of later complication, without mention of misadventure at the time of the procedure; Y92.89 Other specified places as the place of occurrence of the external cause
CPT/HCPCS: 36415; 36569; 70450-TC; 71045-TC; 71270-TC; 74178; 80048-TC; 80061-TC; 80202-TC; 82272-TC; 82728-TC; 83540-TC; 83735-TC; 84100-TC; 84443-TC; 85025-TC; 85610-TC; 85730-TC; 86850-TC; 87081-TC; 88307-TC; 88311-TC; 88312-TC; A4217; A6253; A6402; A6403; G0378; J2250; J2310; J2405; J2543; J2704; J2916; J3010; J3370; J3475; J3490; J7030; J7040; J7050; J7060; Q9967

== ENCOUNTER 2018-04-16 08:55 | Outpatient (CLI) | payer OTHER ==
[~2018-04-16 08:55] MED LIST: ACET325T53 PO; ATOR20TA PO; CYAN500T4 PO; HYDR-3972 PO; MAGN400O6 PO; MIRT15TA7 PO; QUET50TA PO
== END 2018-04-16 23:59 | disposition home health service (06) ==
LOC: WOU 08:55
PROVIDERS: ATTEND Podiatrist Foot & Ankle Surgery
DX: I70.245 Atherosclerosis of native arteries of left leg with ulceration of other part of foot (principal); L97.522 Non-pressure chronic ulcer of other part of left foot with fat layer exposed; Z89.422 Acquired absence of other left toe(s); R60.0 Localized edema
CPT/HCPCS: 11042; 11045; A6402 ×2

== ENCOUNTER 2018-05-18 06:28 | Inpatient (IN) | payer OTHER ==
[~2018-05-18] VITALS: Ht 182.9 cm; Wt 69.0 kg
[~2018-05-18 06:28] MED LIST changes: +ALBUTEROL FS 2.5 MG/3 ML VIAL.NEB ONE; +IPRATROPIUM NEB FS 0.5 MG/2.5 ML AMPUL.NEB ONE
[2018-05-18] MEDS ORDERED: ANESTHESIA TRAY IN PYXIS 1 EA TRAY MC ONE (07:06)
[2018-05-18] MEDS ORDERED: BUPIVACAINE MPF 0.5% W/EPI INJ 30 ML VIAL ONE (07:07)
[2018-05-18] MEDS ORDERED: MINERAL OIL 10 ML VIAL MC ONE (07:07)
[2018-05-18] MEDS ORDERED: BUPIVACAINE 0.5 % PF 150 MG/30 ML VIAL ONE (07:07)
[2018-05-18] MEDS ORDERED: LIDOCAINE HCL/PF 1% 30 ML SDV ONE (07:07)
[2018-05-18] MEDS ORDERED: FENTANYL PF 100MCG/2ML AMPUL ONE (07:43)
[2018-05-18 10:30] VITALS: BP 117/75
--- NOTE | 2018-05-18 10:30 | NUR ---
MS DRY BOX OPERATOR NOTE PT ARRIVED TO MS UNIT VIA GURNEY FROM PACU. PT IS A/O X4, AFEBRILE. RESPIRATIONS ARE EVEN AND UNLABORED, NOT IN ANY ACUTE DISTRESS NOTED. PUPILS ARE REACTIVE TO LIGHT, BILATERAL HAND MENTAL HEALTH PROFESSIONAL ARE STRONG AND EQUAL. DENIES ANY PAIN, SOB, N/V. IV SITE TO LAC G20 INTACT, NO INFILTRATION NOTED. DRESSING KEPT CLEAN AND DRY. DRESSING TO LEFT FOOT INTACT, DR. HIGGINS TO CHANGE FIRST AND NURSING TO REINFORCE DRESSING IF STRIKETHROUGH. S/P WOUND DEBRIDEMENT TO LEFT FOOT AND S/P SKIN GRAFT ON LEFT LATERAL THIGH. DRESSING IN PLACE. ABDOMEN IS SOFT AND NONDISTENDED, BOWEL SOUNDS ARE PRESENT IN ALL 4 QUADRANTS UPON AUSCULTATION. DENIES ANY BLADDER DISCOMFORT. PT ABLE TO URINATE USING A URINAL. HUANG BAILEY MADE AWARE OF ADMISSION W/ ORDERS NOTED AND CARRIED OUT. INSTRUCTED PT TO USE CALL LIGHT WHEN ASSISTANCE IS NEEDED, CALL LIGHT IS LEFT WITHIN REACH. SAFETY MEASURES ARE IN PLACE. WILL MONITOR THROUGHOUT SHIFT FOR CONTINUITY OF CARE.
[2018-05-18] MEDS ORDERED: MAGNESIUM HYDROXIDE 30 ML UDC PO PRN ×2 (11:00→16:30)
[2018-05-18] MEDS ORDERED: ACETAMINOPHEN 325 MG TABLET PO PRN ×2 (11:00→16:30)
[2018-05-18] MEDS ORDERED: ONDANSETRON HCL/PF 4 MG/2 ML VIAL IVP PRN (11:00)
[2018-05-18] MEDS ORDERED: HYDROCODONE/APAP 10/325MG 1 EA TABLET PO PRN (11:00)
[2018-05-18] MEDS ORDERED: MAG HYDROX/AL HYDROX/SIMETH 30 ML UDC PO PRN (11:00)
[2018-05-18] MEDS ORDERED: ZOLPIDEM TARTRATE 5 MG TABLET PO PRN (11:00)
[2018-05-18] MEDS ORDERED: HYDROCODONE/APAP 5/325MG 1 EACH TABLET PO PRN ×2 (11:00→16:30)
[2018-05-18] MEDS: IV NS 0.9% 1,000 ML IV PRN (14:49)
[2018-05-18] MEDS: MORPHINE SULFATE INJ 2 MG/ML DISP.SYRIN IV PRN ×2 (14:50→19:26)
--- NOTE | 2018-05-18 14:50 | NUR ---
MS RN NOTES-- ADMINISTERED MORPHINE 2MG IV FOR PAIN LEVEL 10/10 TO LEFT FOOT. WILL NOTE EFFECTIVENESS.
[2018-05-18 16:00] VITALS: BP 100/60
[2018-05-18] MEDS: VANCOMYCIN 1 GM in IV D5W 250ml IV SCH (16:52)
[2018-05-18] MEDS ORDERED: FEE PK DOSING 1 MIN EA MC ONE (18:28)
--- NOTE | 2018-05-18 18:29 | NUR ---
MS RN CLOSING NOTES ALL DUE MEDS GIVEN, NEEDS MET AND RENDERED. PT IS A/O X4, AFEBRILE. RESPIRATIONS ARE EVEN AND UNLABORED, NOT IN ANY ACUTE DISTRESS NOTE. MORPHINE NOTED TO BE EFFECTIVE. IV SITE TO LAC INTACT, NO INFILTRATION NOTED. DRESSING KEPT CLEAN AND DRY. REINFORCED DRESSING TO LEFT LATERAL THIGH. NO STRIKETHROUGH ON DRESSING TO LEFT FOOT. LEFT FOOT KEPT ELEVATED OF HEELS OFFLOADED. SAFETY MEASURES ARE IN PLACE. REMINDED PT TO USE CALL LIGHT WHEN ASSISTANCE IS NEEDED, CALL LIGHT IS LEFT WITHIN REACH. WILL ENDORSE TO NEXT SHIFT FOR CONTINUITY OF CARE.
--- NOTE | 2018-05-18 19:30 | NUR ---
/RN PATIENT IS AWAKE, ALERT, ORIENTED, S/P WOUND DEBRIDEMENT OF THE LEFT FOOT, C/O PAIN 11/09. MEDICATED WITH MORPHINE 2 MG IV ORDERED, DRESSING TO LEFT FOOT INTACT AND LATERAL THIGH ARE INTACT AND CLEAN, NO SIGN OF BLEEDING NOTED, WILL MONITOR. Addendum: 05/19/18 at 0615 by CHILANGO GARCIA RN PATIENT REFUSED IV FLUIDS.
[2018-05-18 19:59] LABS: CALCIUM, SERUM 8.7 mg/dL (8.5-10.1); POTASSIUM 4.6 mmol/L (3.5-5.1)
[2018-05-18 20:17] VITALS: BP 115/65
[2018-05-18] MEDS: ATORVASTATIN 10 MG TABLET PO SCH (21:48)
[2018-05-18] MEDS: QUETIAPINE FUMARATE 25 MG TABLET PO SCH (21:48)
[2018-05-18] MEDS: MIRTAZAPINE 15 MG TABLET PO SCH (21:48)
--- NOTE | 2018-05-19 00:22 | NUR ---
MS/RN PATIENT IS SLEEPING AT THIS TIME, APPEAR COMFORTABLE, NO SIGNS OF DISTRESS NOTED, CALL LIGHT IN REACH, WILL CONTINUE TO MONITOR.
[2018-05-19] MEDS: MORPHINE SULFATE INJ 2 MG/ML DISP.SYRIN IV PRN ×2 (00:47→05:05)
[2018-05-19] MEDS: VANCOMYCIN 1 GM in IV D5W 250ml IV SCH ×2 (04:49→16:21)
--- NOTE | 2018-05-19 06:13 | NUR ---
MS/RN PATIENT APPEAR SLEEPING, APPEAR COMFORTABLE, NO DISTRESS NOTED, CALL LIGHT IN REACH. ALL NEEDS ATTENDED AT THIS TIME. WILL CONTINUE TO MONITOR.
--- NOTE | 2018-05-19 07:30 | NUR ---
RN OPENING NOTES PT AWAKE AND RESTING IN BED. NO COMPLAINTS OF PAIN, SOB, OR DISTRESS AT THIS TIME. PT HAS LEFT AC #18 INTACT AND PATENT, PT REFUSING IV HYDRATION. PER PATIENT WILL INCREASE PO FLUID INTACT. SAFETY PRECAUTIONS IN PLACE, BED IN LOWEST LOCKED POSITION, X2 SIDE RAILS UP AND CALL LIGHT WITHIN REACH. WILL CONTINUE TO MONITOR.
[2018-05-19 07:38] LABS: BASOPHILS % (AUTO) 0.3 % (0.0-2.0); EOSINOPHILS % (AUTO) 0.3 % (0.0-6.0); HEMATOCRIT 36 % (39-51); HEMOGLOBIN 11.5 g/dL (13.5-17.5); LYMPHOCYTES # (AUTO) 1.9 /CMM (0.8-4.8); LYMPHOCYTES % (AUTO) 16.7 % (20.0-44.0); MEAN CORPUSCULAR HGB CONC 32 g/dl (31.0-36.0); MEAN CORPUSCULAR VOLUME 87 fL (80-96); MONOCYTES # (AUTO) 1.3 /CMM (0.1-1.30); MONOCYTES % (AUTO) 11.4 % (2.0-12.0); NEUTROPHILS % (AUTO) 71.3 % (43.0-81.0); PLATELET COUNT (AUTO) 217 /CMM (150-450); RED BLOOD CELL COUNT(AUTO) 4.07 MIL/uL (4.5-6.0); WHITE BLOOD COUNT (AUTO) 11.2 K/uL (4.3-11.0)
[2018-05-19 07:49] LABS: CALCIUM, SERUM 9.1 mg/dL (8.5-10.1); CREATININE 0.8 mg/dL (0.6-1.3); MAGNESIUM 1.8 mg/dL (1.8-2.4); PHOSPHORUS 2.9 mg/dL (2.5-4.9); POTASSIUM 4.1 mmol/L (3.5-5.1)
[2018-05-19 08:00] VITALS: BP 103/62
[2018-05-19] MEDS: CYANOCOBALAMIN 500 MCG TABLET PO SCH (08:13)
[2018-05-19] MEDS: PANTOPRAZOLE 40 MG TABLET.DR PO SCH (08:13)
[2018-05-19] MEDS: HYDROMORPHONE 1 MG/1 ML DISP.SYRIN IV PRN ×3 (11:30→22:51)
--- NOTE | 2018-05-19 12:00 | NUR ---
RN NOTES PT COMPLAINING OF LEFT GRAFT SITE AND LEFT FOOT PAIN, WILL ADMINISTER PRN DILAUDID 1MG AND CONTINUE TO MONITOR.
[2018-05-19 16:00] VITALS: BP 110/70
--- NOTE | 2018-05-19 16:30 | NUR ---
RN NOTES PT COMPLAINING OF LEFT GRAFT SITE AND LEFT FOOT PAIN, WILL ADMINISTER PRN DILAUDID 1MG AND CONTINUE TO MONITOR.
[2018-05-19] MEDS: ENSURE ENLIVE CHOC 237 ML CAN PO SCH (17:25)
--- NOTE | 2018-05-19 18:40 | NUR ---
RN CLOSING NOTES PT AWAKE AND RESTING IN BED. NO COMPLAINTS OF PAIN, SOB, OR DISTRESS AT THIS TIME. PT HAS LEFT AC #18 INTACT AND PATENT, PT REFUSING IV HYDRATION LYNN PARMAR NP AWARE. PER PATIENT WILL INCREASE PO FLUID INTACT. ALL PT NEEDS MET DURING SHIFT. PAIN MANAGED WITH DILAUDID 1MG PRN. SAFETY PRECAUTIONS IN PLACE, BED IN LOWEST LOCKED POSITION, X2 SIDE RAILS UP AND CALL LIGHT WITHIN REACH. WILL ENDORSE TO RESIDENTIAL REAL ESTATE ASSISTANT NURSE FOR CONTINUITY OF CARE.
--- NOTE | 2018-05-19 19:30 | NUR ---
MS RN INITIAL NOTES Patient in bed, awake. Stable oxygen saturation on RA. Left thigh and left foot dressing C/D/I , denies pain. Patient refused IVF, education provided, per report MD was informed of refusal. Call light within reach, will cont to monitor.
[2018-05-19 20:00] VITALS: BP 100/66
[2018-05-19 20:29] VITALS: BP 100/66
[2018-05-19] MEDS: MIRTAZAPINE 15 MG TABLET PO SCH (21:07)
[2018-05-19] MEDS: ATORVASTATIN 10 MG TABLET PO SCH (21:07)
[2018-05-19] MEDS: QUETIAPINE FUMARATE 25 MG TABLET PO SCH (21:08)
[2018-05-19] MEDS: AMOX/CLAVULANATE 875 MG TABLET PO SCH (21:08)
[2018-05-20 04:22] LABS: CALCIUM, SERUM 8.8 mg/dL (8.5-10.1); CREATININE 0.7 mg/dL (0.6-1.3); POTASSIUM 4.1 mmol/L (3.5-5.1)
[2018-05-20] MEDS: HYDROMORPHONE 1 MG/1 ML DISP.SYRIN IV PRN ×3 (05:15→20:26)
[2018-05-20] MEDS: PANTOPRAZOLE 40 MG TABLET.DR PO SCH (06:34)
[2018-05-20] MEDS: HYDROCODONE/APAP 10/325MG 1 EA TABLET PO PRN ×2 (06:37→16:24)
--- NOTE | 2018-05-20 06:43 | NUR ---
MS RN CLOSING NOTES Patient in bed, stable oxygen saturation on RA. Left thigh and left foot dressing C/D/I , pain is controlled with PRN Dilaudid. On PO antibiotic as scheduled. IVF not infusing due to patient refusal, education provided. Slept well, no acute events overnight. Call light within reach. Planned discharge home, CM for placement, patient prefers to go to nursing facility when discharge. Will endorse to oncoming RN.
[2018-05-20 08:00] VITALS: BP 121/66
--- NOTE | 2018-05-20 08:00 | NUR ---
RN OPENING NOTES PT RECEIVED AWAKE IN BED, AOX4. BREATHING IS EVEN AND UNLABORED ON ROOM AIR, SPO2 WNL. PATIENT EXPRESSED PAIN MEDICATION WAS NOT EFFECTIVE. NOTIFIED LYNN, CALL MANAGER. NEW ORDER WAS GIVEN AND CARRIED OUT. PT HAS LEFT AC #18 INTACT AND PATENT, FLUSHING WELL. PT REFUSING IV HYDRATION. PER PATIENT WILL INCREASE PO FLUID. SAFETY PRECAUTIONS IN PLACE, BED IN LOWEST LOCKED POSITION, X2 SIDE RAILS UP AND CALL LIGHT WITHIN REACH. WILL CONTINUE TO MONITOR.
[2018-05-20] MEDS ORDERED: HYDROMORPHONE 1 MG/1 ML DISP.SYRIN IV ONE (08:15)
[2018-05-20] MEDS: CYANOCOBALAMIN 500 MCG TABLET PO SCH (08:44)
[2018-05-20] MEDS: AMOX/CLAVULANATE 875 MG TABLET PO SCH ×2 (08:45→21:28)
[2018-05-20] MEDS: ENSURE ENLIVE CHOC 237 ML CAN PO SCH ×2 (09:12→16:20)
[2018-05-20 16:10] VITALS: BP 106/62
--- NOTE | 2018-05-20 19:00 | NUR ---
MS RN CLOSING NOTES PATIENT RESTING IN BED, AOX4. BREATHING EVEN AND UNLABORED TO ROOM AIR. PATIENT TOLERATING MINIMAL PAIN AND STATES PRN FOR PAIN IS EFFECTIVE IN REDUCING PAIN. IV ON RLA #20 PATENT AND FLUSHING WELL, NO SIGNS OF INFILTRATION. WOUND DRESSINGS ARE DRY AND INTACT WITH MINIMAL STRIKE THROUGH ON LEFT THIGH DRESSING. LINENS CHANGED, CLEAN AND DRY. SAFETY PRECAUTIONS IN PLACE. BED IN LOWEST LOCKED POSITION, SR UP X2, AND CALL LIGHT WITHIN REACH. ALL MEDICATIONS GIVEN AND ALL NEEDS MET ON SHIFT. WILL ENDORSE TO ONCOMING NURSE FOR CONTINUITY OF CARE.
[2018-05-20 20:00] VITALS: BP 158/73
[2018-05-20] MEDS ORDERED: oxyCODONE/APAP (5/325 MG) 1 UDTAB TABLET PO PRN ×2 (21:00)
--- NOTE | 2018-05-20 21:25 | NUR ---
RN INITIAL NOTES: RECEIVED REPORT FROM NETTIE GARCIA. PT IN BED, AWAKE, A/O X4, ON RA RESPIRATION EVEN AND UNLBAORED, PT CLAIMED THAT DILAUDID EFFECTIVELY MANAGED HIS PAIN, HE CLAIMED THAT HE'S BEEN HAVING 10/10 PAIN BUT NO RELIEF WITH ANY PO NARCOTICS, ONLY DILAUDID HELPED MANAGE HIS PAIN WELL, PS 3/10 NOW. PT S/P WOUND DEBRIDEMENT WITH SPLIT THICKNESS SKIN GRAFT ON LEFT THIGH TO LEFT FOOT 05/18. DRESSING C/D/I, NO ACTIVE BLEEDING NOTED, PER MD ORDER TO OKAY TO REINFORCE IF STRIKETHROUGH. IV ACCESS PATENT AND FLUSHING WELL, ON HL. PT REFUSED SCD, EDUCATION PROVIDED TO THE PT. URINAL WITHIN REACH. SAFETY PRECAUTIONS FOR FALL INITIATED, CALL LIGHT IN REACH, WILL CONTINUE MONITORING PT.
[2018-05-20] MEDS: MIRTAZAPINE 15 MG TABLET PO SCH (21:29)
[2018-05-20] MEDS: ATORVASTATIN 10 MG TABLET PO SCH (21:29)
[2018-05-20] MEDS: QUETIAPINE FUMARATE 25 MG TABLET PO SCH (21:29)
[2018-05-20] MEDS: IV NS 0.9% 1,000 ML IV PRN (23:30)
[2018-05-21] MEDS: HYDROMORPHONE 1 MG/1 ML DISP.SYRIN IV PRN ×3 (00:55→10:14)
--- NOTE | 2018-05-21 00:55 | NUR ---
PRN DILAUDID: PT C/O EXCRUCIATING PAIN ON LEFT FOOT 12/09 REQUESTING FOR DILAUDID, OFFERED PERCOCET TABLET BUT PATIENT REFUSED, PRN DILAUDID 1MG IVP ADMINISTERED AT THIS TIME, WILL CONTINUE TO MONITOR AND REASSESS
[2018-05-21 05:00] VITALS: BP 144/73
--- NOTE | 2018-05-21 05:10 | NUR ---
PRN DILAUDID: PT C/O SHARP LIGHT FOOT PAIN REQUESTING FOR DILAUDID, OFFERED PERCOCET BUT PT REFUSED, PRN DILAUDID 1MG IVP ADMINISTERED AT THIS TIME, WILL CONTINUE TO MONITOR AND REASSESS
--- NOTE | 2018-05-21 05:48 | NUR ---
RN NOTES: CHECK TO REASSESS PT'S PAIN LEVEL HE CLAIMED IT WAS A 3, RN WS EMPTYING THE URINAL, NOTED PT'S IV ACCESS SITE WITH BLOOD AROUND THE DRESSING, INFORMED PT ABOUT THIS, AND EXPLAINED TO PT NEED TO CLEAN THE AREA AND CHECK FOR PLACEMENT, MAKE SURE IT'S STILL PATENT. PT REFUSED TO TOUCH EVEN FIX THE IV SITE. INFORMED PT RN WILL NEED TO START NEW IV ACCESS THE SITE LOOKS LIKE ITS NOT IN THE PROPER PLACE, OR NOT IN THE VEIN DUE TO PRESENCE OF A BLOOD AROUND THE DRESSING, BUT PT REFUSED AND STARTED GETTING ANXIOUS SAYING THAT HE'S IV ACCESS WAS JUST INSERTED LAST NIGHT AT 0700PM AND NOBODY'S ALLOWED TO REMOVE OR TOUCH IT. HANDBAG PARTS CUTTER MADE AWARE
--- NOTE | 2018-05-21 06:30 | NUR ---
RN CLOSING NOTES: PT IN BED, LAST PAIN MEDS ADMINISTERED AT 0510AM. IV ACCESS REMAINS PATENT AND FLUSHING WELL, REFUSED FOR IVF. WOUND DRESSING REMAINS C/D/I, NO ACTIVE BLEEDING NOTED. VS REMAINS STABLE, NEEDS ATTENDED. SAFETY PRECAUTIONS FOR FALL REMAINS ENGAGED, CALL LIGHT IN REACH, WILL ENDORSE TO DAY RN FOR CONTINUITY OF CARE.
--- NOTE | 2018-05-21 07:31 | NUR ---
INITIAL RECEIVED PT IN BED, AWAKE, A/O X4, ON RA RESPIRATION EVEN AND UNLABORED, PT S/P WOUND DEBRIDEMENT WITH SPLIT THICKNESS SKIN GRAFT ON LEFT THIGH TO LEFT FOOT 05/18. DRESSING C/D/I, NO ACTIVE BLEEDING NOTED, PER MD ORDER TO OKAY TO REINFORCE IF STRIKETHROUGH. IV ACCESS PATENT AND FLUSHING WELL, ON HL. PT REFUSED SCD, EDUCATION PROVIDED TO THE PT. URINAL WITHIN REACH. SAFETY PRECAUTIONS FOR FALL INITIATED, CALL LIGHT IN REACH, WILL CONTINUE MONITORING PT
[2018-05-21 07:45] LABS: CALCIUM, SERUM 8.8 mg/dL (8.5-10.1); CREATININE 0.7 mg/dL (0.6-1.3); POTASSIUM 4.2 mmol/L (3.5-5.1)
[2018-05-21] MEDS: PANTOPRAZOLE 40 MG TABLET.DR PO SCH (07:50)
[2018-05-21 08:00] VITALS: BP 96/58
[2018-05-21] MEDS: ENSURE ENLIVE CHOC 237 ML CAN PO SCH (08:35)
[2018-05-21] MEDS: AMOX/CLAVULANATE 875 MG TABLET PO SCH (08:39)
[2018-05-21] MEDS: CYANOCOBALAMIN 500 MCG TABLET PO SCH (08:39)
--- NOTE | 2018-05-21 10:26 | NUR ---
PT STATES HE IS DRINKING LOTS OF FLUIDS AND DOES NOT WANT NS AT 75 ML/HR DRIP PT EXPLAINED THE NEED FOR PIV AND GIVEN IV DILAUDID.
--- NOTE | 2018-05-21 12:03 | NUR ---
TEXTED MD HAGEN LEAVE DRESSING INTACT FOLLOW UP NEXT WEEK IN OFFICE ORDERS DRESSING CLEAN AND DRY NO ENFORCEMENT NEEDED.
--- NOTE | 2018-05-21 15:19 | NUR ---
PT DISCHARGED TO [facility] LEAVING AT 1445 WITH TRANSPORTATION COMPANY SPOKE WITH ROBIN AT FACILITY GIVING RN REPORT
== END 2018-05-21 14:50 | DRG 361 ==
LOC: DS 06:28 → MED 09:10
PROVIDERS: ADMIT Nurse Practitioner Acute Care; ATTEND Nurse Practitioner Acute Care
PROC: 0HRNX74 Replacement of Left Foot Skin with Autologous Tissue Substitute, Partial Thickness, External Approach (ICD-10-PCS; principal; 2018-05-18)
PROC: 0HBHXZZ Excision of Right Upper Leg Skin, External Approach (ICD-10-PCS; principal; 2018-05-18)
DX: L03.116 Cellulitis of left lower limb (principal); R64 Cachexia; L97.529 Non-pressure chronic ulcer of other part of left foot with unspecified severity; C34.90 Malignant neoplasm of unspecified part of unspecified bronchus or lung; D63.8 Anemia in other chronic diseases classified elsewhere; E78.5 Hyperlipidemia, unspecified; F17.200 Nicotine dependence, unspecified, uncomplicated; F32.9 Major depressive disorder, single episode, unspecified; I73.9 Peripheral vascular disease, unspecified; Z89.422 Acquired absence of other left toe(s); Z98.62 Peripheral vascular angioplasty status; G47.00 Insomnia, unspecified; S90.862S Insect bite (nonvenomous), left foot, sequela; W57.XXXS Bitten or stung by nonvenomous insect and other nonvenomous arthropods, sequela; R91.8 Other nonspecific abnormal finding of lung field
CPT/HCPCS: 36415; 80048-TC; 80061-TC; 80202-TC; 83735-TC; 84100-TC; 85025-TC; 87070-TC; 87081-TC; 87186-TC; 97110-TC; 97116-TC; 97530-TC; A6209; A6402; A6403; G0378; J0690; J1100; J1170; J2270; J2405; J2704; J3010; J3370; J3490; J7030; J7060